=== PATIENT | female | born 2000 ===

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

== ENCOUNTER 2022-01-12 08:52 | Outpatient (REF) | payer BC, SELFPAY ==
[2022-01-12 10:17] LABS: COVID-19 Test Negative (Negative); IDNOW Serial# 16C4AD1C
== END 2022-01-12 08:53 | disposition home or self-care (01) ==
LOC: HO.LAB 08:52
PROVIDERS: Visit Provider Internal Medicine
DX: Z20.822 Contact with and (suspected) exposure to COVID-19 (principal)
CPT/HCPCS: 87635; C9803

== ENCOUNTER 2022-01-29 10:00 | Outpatient (RCR) | payer BC, SELFPAY ==
[2021-12-30 11:05] VITALS: BMI 24.5
[2021-12-30 11:06] VITALS: BP 92/60; PULSE 68; TEMP 36.4
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
--- NOTE | 2022-01-01 13:38 | HO.PHPIOP ---
I met with pt and reviewed treatment plan and discussed schedule.
--- NOTE | 2022-01-01 14:59 | HO.PHPIOP ---
Case opened in treatment team.
--- NOTE | 2022-01-06 14:42 | HO.PHPIOP ---
I met with pt today. She reported continued struggle with some severe depressive symptoms. She reports strong passive SI daily but with no plan or intent. She agreed to ask for help if thoughts get tot he point in which she might act on them. She reported some difficulty opening up in groups, and we discussed ways to do so and what she might want to say. Pt asked if she might discharge on Wednesday, as her leave from school will be up, and I suggested she stay longer but said we of course would honor her decision. She asked me to call the [facility] center at [facility], where she has just seen a nurse practitioner for the first time, by the name of Fior. I called the [facility] and spoke to Dina, who said Fior is out. I asked Dina how we might go about getting more time for pt to be on leave and she said she would talk to Marisela, the director of student counseling, who will then talk to the alena. She said she'd get back to me ani. I asked if pt might stay until Wednesday, 01/14, as per pt's request.
--- NOTE | 2022-01-07 18:34 | HO.PHPIOP ---
Pt's mother called and spoke to program clinical secretary requesting a family meeting. I spoke to pt and she agreed to this reluctantly. I then called pt's mother and she said she'd rather talk to this clinician on the phone. Pt agreed to this, and I called her mother back and spoke to her. She asked how pt has been doing in the program and I shared about progress pt has made and continued depressed mood. Pt's mother speculated about whether pt should take the rest of the semester off, and I shared that pt has asked the same question. Pt's mother expressed concern that pt's therapist has not been helpful and asked whether pt should change therapists. She requested pt see a therapist at this hospital and I told her we don't have outpatient therapists, but that we could help pt make a change if pt wants.
--- NOTE | 2022-01-08 13:26 | P.PNPSP_ITS ---
Subjective Subjective Date of Service: 01/08/22 Reason For Visit: anxiety Medical Problems Affecting Mental Status: No Interim History: Reports mood as ?better, starting to feel less depressed ?. Anxiety improving. Sleep is good, 8-9 hours per night. Appetite still low. Denies SI/HI, no safety concerns. Would like sertraline increased to 100 mg daily. Medication Compliance: Yes Side effects from medications: No Attending Groups: Yes Review of Systems Acute medical concerns: No Medical Review of Systems: unchanged Review of Systems Review of Systems Yes all other systems are reviewed and are negative Constitutional: Reports no additional constitutional complaints Mental Status Exam Mental Status Exam Narrative: NAD Patient Appearance: Well Grooomed and Appropriate Patient Orientation: Person, Place, Time and Situation Level of Consciousness: Appropriate Patient Behavior: Appropriate, Cooperative and Good Eye Contact Mood Description: Depressed (Describes as beginning to lessen) Affect Description: Depressed Patient Cognition Impaired: No Ability to Follow Directions: Excellent Speech Pattern: Clear and Appropriate Memory Description: Intact Hallucinations: None Delusions: Not Present Thought Process: Intact Depressive Symptoms: Increased Anxiety, Changes in Appetite (Reduced), Loss of Int. in Activity, Isolating-Friends/Family and Difficulty Concentrating Judgement: Fair Diagnostics Vital Signs (24Hr): BMI result Body Mass Index 24.5 Assessment & Plan Assessment & Plan (1) Major depressive disorder, recurrent episode, severe: Status: Acute Code(s): F33.2 - Major depressive disorder, recurrent severe without psychotic features Assessment and Plan: Reports mood as ?better, starting to feel less depressed ?. Anxiety improving. Sleep is good, 8-9 hours per night. Appetite still low. Discussed ways to improve eating, such as adding protein in small amounts. Patient also encouraged to walk outside daily, starting at 10 minutes as tolerated. Denies SI/HI, no safety concerns. Would like sertraline increased to 100 mg daily. Patient spoke with nurse practitioner at her school, they discussed increasing dose if patient would like up to 100 mg daily. Patient asked this telegraphic typewriter mechanic regarding this. We discussed side effects, indications of medication, recommended dosing as per prescribed prescribed. Patient is tolerating medication well with no side effects. Finding groups helpful. (2) Generalized anxiety disorder: Status: Acute Code(s): F41.1 - Generalized anxiety disorder Assessment and Plan: Patient has not used p.r.n. hydroxyzine. States has been feeling less anxious since participating in program. Plan 1. Continue with current [facility] plan of care. 2. Increase sertraline to 100 mg daily. 3. Follow-up as per protocol. Patient educated on: medication risk/benefits and therapeutic strategies Informed Consent: understands Reason for contiued partial hosp. stay Substantial Risk for: harm to self and inability to function Certification I certify that partial hospital treatment is medically necessary due to the symptoms and problems resulting from the patient's mental illness and the failure to treat the patient at the partial hospital level of care would likely result in the patient requiring inpatient psychiatric care which could not be prevented at a less intensive level of care. I spent minutes with the patient and/or on the patient floor today, greater than?50% of which was spent counseling/coordinating care. Discharge Plan Discharge Attending provider: Justin Petit Medications: New hydroxyzine HCl 25 mg tablet 25 mg PO TID PRN (Reason: anxiety) Qty: 21 0RF sertraline 100 mg tablet 100 mg PO DAILY 30 Days Qty: 30 0RF
--- NOTE | 2022-01-12 14:10 | PC.NURSE ---
Patient reported cold sxs this morning reporting a, stuffy nose and a cough . Recommended patient get a Covid test at the hospital. Patient Covid test negative. Spoke to patient regarding the results. Patient feeling better, plans on attending the program tomorrow. [facility] staff is aware.
--- NOTE | 2022-01-13 14:25 | HO.PHPIOP ---
I met with pt to talk about her schedule and to discuss whether she has decided to take the rest of the semester off or return to school (as this would impact her aftercare and potential treatment length). Pt reported feeling overwhelmed and has been avoiding opening her emails. I sat with her while she began to open emails. She opened most of them then said she felt okay to continue the process on her own. She reported a continued sense of hopelessness and passive SI, and asked questions about when the medication and therapy might start making her feel better. She was adamant that she would not act on SI, but I spoke to her about how the inpatient unit might be helpful and could help provide a sense of safety if needed, and offered to help her get assessed. She declined but said she'd give it thought. She said she does not believe she has the capacity to finish the semester. I sat with her while she called her mother and spoke with her about not returning this semester. This discussion was brief but her mother seemed to be in support of this decision. We discussed extending pt's treatment for more time, and she agreed to stay until 01/21 (we are closed on the and ). Pt then sent an email to her alena at [facility] asking to extend her medical leave until this time (as she is not fully decided around whether to return for the semester). She asked me to also email the alena. She signed a MONISHA and I later emailed the alena (Willy Valle) asking if she might extend [employer]'s medical leave.
--- NOTE | 2022-01-15 13:27 | HO.PHPPROGNO ---
Subjective Subjective Date of Service: 01/15/22 Reason For Visit: anxiety Medical Problems Affecting Mental Status: No Interim History: Continues with depressed mood. Reports passive SI, with intrusive thoughts. Denies any plan/intent. Has been experiencing headaches, believes it is from sertraline. Sleep is good, appetite is low. Has reduced her dose of sertraline back to 50 mg. Difficulty getting up been motivated in the mornings. Struggling with decision to return to school this week, or withdraw for semester. If she withdraws, she will need to leave her housing on campus. Medication Compliance: Intermittent Side effects from medications: Yes (headaches, attributes to sertraline) Attending Groups: Yes Review of Systems Acute medical concerns: No Medical Review of Systems: unchanged Review of Systems Review of Systems Yes all other systems are reviewed and are negative Constitutional: Reports no additional constitutional complaints Mental Status Exam Mental Status Exam Narrative: NAD Patient Appearance: Well Grooomed and Appropriate Patient Orientation: Person, Place, Time and Situation Level of Consciousness: Appropriate Patient Behavior: Appropriate, Cooperative and Good Eye Contact Mood Description: Depressed Affect Description: Depressed and Flat Patient Cognition Impaired: No Ability to Follow Directions: Excellent Speech Pattern: Clear and Appropriate Memory Description: Intact Hallucinations: None Delusions: Not Present Thought Process: Intact Thought Content: positive for Suicidal Ideation (Describes intrusive thoughts re: passive SI, no intent or plan.) Depressive Symptoms: Increased Anxiety, Changes in Appetite (Reduced), Loss of Int. in Activity, Hopelessness, Isolating-Friends/Family, Unexplained Headaches, Increased Fatigue and Difficulty Concentrating Judgement: Fair Diagnostics Vital Signs (24Hr): BMI result Body Mass Index 24.5 Assessment & Plan Assessment & Plan (1) Major depressive disorder, recurrent episode, severe: Status: Acute Code(s): F33.2 - Major depressive disorder, recurrent severe without psychotic features Assessment and Plan: Continues with depressed mood. The patient questions whether she actually may have bipolar 2 disorder, possibly personality disorder. Reviewed symptoms of disorders. States she has never experienced a manic or hypomanic episode. Reports passive SI, with intrusive thoughts. Denies any plan/intent. Has been experiencing headaches, believes it is from sertraline. Sleep is good, appetite is low. Has reduced her dose of sertraline back to 50 mg. Discussed use of psychiatric medications in general, specifically how medications can be used to target specific troubling symptoms. Discussed various medications, including risks and benefits of each, alternatives, side effects both small and significant of each. Meds discussed were Wellbutrin, Effexor, Abilify, Risperdal, Seroquel. Also discussed TMS. Patient states she would like to trial an SNRI at this time, as the SSRIs no longer effective. States that she is able to manage her intrusive thoughts, and would like to wait prior to starting any type of adjunctive atypical antipsychotic medication at this time. Difficulty getting up been motivated in the mornings. Struggling with decision to return to school this week, or withdraw for semester. If she withdraws, she will need to leave her housing on campus. Letter provided to patient stating that she is enrolled in [facility], and is under our care at present. Also states there is no exact discharge date at this time. (2) Generalized anxiety disorder: Status: Acute Code(s): F41.1 - Generalized anxiety disorder Plan 1. Continue with current [facility] plan of care. 2. Patient to reduce sertraline to 25 mg dose this evening, then discontinue. 3. Effexor 37.5 mg daily ordered, to start tomorrow. 4. Follow-up as per protocol. Patient educated on: diagnosis, medication risk/benefits and therapeutic strategies Informed Consent: understands Reason for contiued partial hosp. stay Substantial Risk for: harm to self, inability to function and rapid decompensation Certification I certify that partial hospital treatment is medically necessary due to the symptoms and problems resulting from the patient's mental illness and the failure to treat the patient at the partial hospital level of care would likely result in the patient requiring inpatient psychiatric care which could not be prevented at a less intensive level of care. I spent minutes with the patient and/or on the patient floor today, greater than?50% of which was spent counseling/coordinating care. Discharge Plan Discharge Attending provider: Justin Petit Medications: New hydroxyzine HCl 25 mg tablet 25 mg PO TID PRN (Reason: anxiety) Qty: 21 0RF venlafaxine 37.5 mg tablet 37.5 mg PO DAILY Qty: 7 0RF Stand Alone Forms: Patient Portal Discharge page Patient Education: Venlafaxine (By mouth)
--- NOTE | 2022-01-16 09:30 | PC.NURSE ---
Patient did not show up to the program today. I called patient and woke her up. She stated she was going to call the program as she overslept and is not able to make it to the program as she does not have a ride. Patient stated she plans on being at the program on Wednesday. I asked her if she was safe or having any SI or thoughts to harm herself. She stated no SI or thoughts to harm herself and that she is safe. Stated she did not know what her plans were for the weekend as she just woke up. [facility] staff is aware.
--- NOTE | 2022-01-19 16:09 | HO.PHPPROGNO ---
Subjective Subjective Date of Service: 01/19/22 Reason For Visit: anxiety Medical Problems Affecting Mental Status: No Interim History: Continues with depressed mood. Depressed, Anxious affect. No active SI, no safety concerns. Last does sertraline was Wednesday. Has not yet started venlafaxine, had several questions. Medication Compliance: Yes Side effects from medications: No Attending Groups: Yes Review of Systems Acute medical concerns: No Medical Review of Systems: unchanged Review of Systems Review of Systems Yes all other systems are reviewed and are negative Constitutional: Reports no additional constitutional complaints Mental Status Exam Mental Status Exam Narrative: NAD Patient Appearance: Well Grooomed and Appropriate Patient Orientation: Person, Place, Time and Situation Level of Consciousness: Appropriate Patient Behavior: Appropriate, Cooperative and Good Eye Contact Mood Description: Depressed Affect Description: Depressed and Anxious Patient Cognition Impaired: No Ability to Follow Directions: Excellent Speech Pattern: Clear and Appropriate Memory Description: Intact Hallucinations: None Delusions: Not Present Thought Process: Intact Thought Content: positive for Suicidal Ideation (Continueswith some intrusive thoughts re: passive SI, no intent or plan.) Depressive Symptoms: Increased Anxiety, Changes in Appetite (Reduced), Loss of Int. in Activity, Isolating-Friends/Family, Unexplained Headaches, Increased Fatigue and Difficulty Concentrating Judgement: Fair Diagnostics Vital Signs (24Hr): BMI result Body Mass Index 24.5 Assessment & Plan Assessment & Plan (1) Major depressive disorder, recurrent episode, severe: Status: Acute Code(s): F33.2 - Major depressive disorder, recurrent severe without psychotic features Assessment and Plan: Patient reports she does not want to take quetiapine. It was explained that venlafaxine had been ordered. Printed patient education material provided for patient regarding med. Also discussed possibility of complex trauma symptoms, as patient does describe some symptoms at times, including intrusive thoughts, difficulty with emotional regulation, feeling worthless at times, hopeless, difficulty managing anger, feeling suicidal at times. She reports that several weeks ago she went to a place called [facility] ?for an evaluation, as she felt she had attention deficit hyperactivity disorder. After testing, she says they informed her that they believe she had complex PTSD. Patient was provided with posttraumatic stress disorder self screening tool. We also discussed symptom management regarding some of the symptoms she has been experiencing. (2) Generalized anxiety disorder: Status: Acute Code(s): F41.1 - Generalized anxiety disorder Plan 1. Many she will return the self screening tool, which she will complete today. 2. Patient to read handout on venlafaxine. 3. Follow-up as per protocol, sooner if indicated. Patient educated on: diagnosis, medication risk/benefits and therapeutic strategies Informed Consent: understands Reason for contiued partial hosp. stay Substantial Risk for: harm to self, inability to function and rapid decompensation Certification I certify that partial hospital treatment is medically necessary due to the symptoms and problems resulting from the patient's mental illness and the failure to treat the patient at the partial hospital level of care would likely result in the patient requiring inpatient psychiatric care which could not be prevented at a less intensive level of care. I spent minutes with the patient and/or on the patient floor today, greater than?50% of which was spent counseling/coordinating care. Discharge Plan Discharge Attending provider: Justin Petit Medications: New hydroxyzine HCl 25 mg tablet 25 mg PO TID PRN (Reason: anxiety) Qty: 21 0RF venlafaxine 37.5 mg tablet 37.5 mg PO DAILY Qty: 7 0RF Stand Alone Forms: Patient Portal Discharge page Patient Education: Venlafaxine (By mouth)
--- NOTE | 2022-01-26 14:27 | HO.PHPIOP ---
I received a message from Isabella, program membership secretary, that pt's mother called and would like me to call back. I tried to call pt to inform her/ ask for her permission. She did not answer and her VM was full. I will talk to pt tomorrow and call her mother is she is okay with this.
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
--- NOTE | 2022-01-29 13:29 | HO.PHPPROGNO ---
Subjective Subjective Date of Service: 01/29/22 Reason For Visit: anxiety Medical Problems Affecting Mental Status: No Interim History: Describes mood as ?good, I am ready to not be in group any more ?. Less depressed. No anxiety. Still struggling with ?my future, figuring out what I want ?. Continues with venlafaxine 37.5 mg daily, also has hydroxyzine prn. Plans to return to [place] at this time. No SI, reports she feels safe. Feels stable for discharge from [facility] at this time. Medication Compliance: Yes Side effects from medications: No Attending Groups: Yes Review of Systems Acute medical concerns: No Medical Review of Systems: unchanged Review of Systems Review of Systems Yes all other systems are reviewed and are negative Constitutional: Reports no additional constitutional complaints Mental Status Exam Mental Status Exam Narrative: NAD Patient Appearance: Well Grooomed and Appropriate Patient Orientation: Person, Place, Time and Situation Level of Consciousness: Appropriate Patient Behavior: Appropriate, Cooperative and Good Eye Contact Mood Description: Appropriate and Depressed (Reports symptoms have lessened.) Affect Description: Appropriate Patient Cognition Impaired: No Ability to Follow Directions: Excellent Speech Pattern: Clear and Appropriate Memory Description: Intact Hallucinations: None Delusions: Not Present Thought Process: Intact Depressive Symptoms: Diff. Making Decisions Judgement: Good Diagnostics Vital Signs (24Hr): BMI result Body Mass Index 24.5 Assessment & Plan Assessment & Plan (1) Major depressive disorder, recurrent episode, severe: Status: Acute Code(s): F33.2 - Major depressive disorder, recurrent severe without psychotic features Assessment and Plan: Describes mood as ?good, I am ready to not be in group any more ?. Less depressed. Still struggling with ?my future, figuring out what I want ?. Continues with venlafaxine 37.5 mg daily, also has hydroxyzine prn. Had several questions regarding venlafaxine, other medication options. Discussed medication, answered her questions to her satisfaction. Discussed options of other medications she may prefer 1 she has tablet she is working with an outpatient provider. Plans to return to [place] at this time. Reports this is due to finances. No SI, reports she feels safe. Feels stable for discharge from [facility] at this time. (2) Generalized anxiety disorder: Status: Acute Code(s): F41.1 - Generalized anxiety disorder Plan 1. Patient appears stable for discharge from [facility] at this time. 2. Patient to follow up with outpatient providers going forward. Patient educated on: diagnosis, medication risk/benefits and therapeutic strategies Informed Consent: understands Reason for contiued partial hosp. stay Substantial Risk for: stable for discharge Certification I certify that partial hospital treatment is medically necessary due to the symptoms and problems resulting from the patient's mental illness and the failure to treat the patient at the partial hospital level of care would likely result in the patient requiring inpatient psychiatric care which could not be prevented at a less intensive level of care. I spent minutes with the patient and/or on the patient floor today, greater than?50% of which was spent counseling/coordinating care. Discharge Plan Discharge Attending provider: Justin Petit Medications: New hydroxyzine HCl 25 mg tablet 25 mg PO TID PRN (Reason: anxiety) Qty: 21 0RF No Action venlafaxine 37.5 mg tablet 37.5 mg PO DAILY Qty: 7 0RF Stand Alone Forms: Patient Portal Discharge page Patient Education: Venlafaxine (By mouth), Depression (DC), Generalized Anxiety Disorder (GEN)
--- NOTE | 2022-01-29 18:39 | HO.PHPIOP ---
I met with pt and her mother, Dr. Charlotte Rahman, over telehealth. Pt and her mother expressed frustration with one another, as well as a mutual desire to get along. Pt reported feeling consistently invalidated by her mother, and her mother reported frustration with pt for continued issues with depression and post traumatic stress. Her mother repeatedly asked her to snap out of it and set a goal to move on , and said, we all have problems but the rest of use are able to still work or maintain studies. I pointed out the invalidation of these comments, and suggested that this might be an ineffective way to get pt to succeed. I also pointed out that these comments appear to come from a place of worry and care for pt, and pt reported ability to see this and understand it. Charlotte apologized several times and reported a desire to be more validating, and both agreed that they have the same goal for pt to be stable and successful. Pt and her mother also discussed plans for pt, as she has to leave [facility]. After discussing options, pt decided to buy a ticket to return to [place] to her mother's home for now. We discussed ways for pt to obtain aftercare and Charlotte said she knows of several agencies that are accessible.
== END 2022-01-29 23:59 | disposition home or self-care (01) ==
LOC: HO.PHPA 10:00
PROVIDERS: Visit Provider Psychiatry & Neurology Psychiatry
DX: F33.2 Major depressive disorder, recurrent severe without psychotic features (principal); F41.1 Generalized anxiety disorder; Z79.899 Other long term (current) drug therapy
CPT/HCPCS: 90792; 90853